=== PATIENT | female | born 1940 | race Caucasian/White ===

== ENCOUNTER 2017-08-31 12:31 | Outpatient (CLI) | payer MEDICARE ==
--- NOTE | 2017-08-31 13:08 | RAD ---
TWO VIEWS LEFT HIP: Comparison: None. History: Left hip pain. FINDINGS: Two views of the left hip shows no evidence of acute fracture or dislocation. No soft tissue swelling is seen. No degenerative changes are present. IMPRESSION: Unremarkable exam. POS: [facility]
== END 2017-08-31 12:32 | disposition home or self-care (01) ==
LOC: SCSRAD 12:31
PROVIDERS: ATTEND Family Medicine
DX: M25.552 Pain in left hip (principal)

== ENCOUNTER 2021-04-08 14:08 | Outpatient (CLI) | payer MEDICARE | END 2021-04-08 14:09 | disposition home or self-care (01) | LOC: SCSRAD 14:08 | PROVIDERS: ATTEND Family Medicine | DX: R07.81 Pleurodynia (principal) ==